=== PATIENT | male | born 1980 | race Caucasian/White ===

== ENCOUNTER 2019-04-25 10:15 | Day surgery (SDC) | payer BC ==
[~2019-04-25] VITALS: Ht 172.7 cm; Wt 85.7 kg
[2019-04-25 10:44] VITALS: BP 125/78; PULSE 63; TEMP 98
[2019-04-25 14:30] VITALS: BP 124/71; PULSE 68
[2019-04-25] MEDS ORDERED: MOTRIN 600600 MG/TAB PO (15:14)
[2019-04-25] MEDS ORDERED: NORCO 325 MG-51 TAB PO (15:15)
[2019-04-25] MEDS ORDERED: COLACE 100100 MG/CAP PO (15:15)
[2019-04-25] MEDS ORDERED: Work Release (15:27)
[2019-04-25 15:40] VITALS: BP 127/81; PULSE 89; TEMP 98.4
--- NOTE | 2019-04-25 15:40 | NUR ---
PATIENT TO BAY 2 PER CART ACCOMPANIED BY PAUC RN. PATIENT ON ROOM AIR. MONITORS APPLIED. VSS. PATIENT STATES HAS SOME DISCOMFORT AND DENIES NAUSEA. REPORT RECEIVED.
[2019-04-25 15:50] VITALS: BP 129/83; PULSE 79
--- NOTE | 2019-04-25 15:50 | NUR ---
VSS. AT BEDSIDE HELPING PATIENT. GIVEN ICE WATER TO DRINK. BROUGHT MUFFIN REQUESTED. REQUESTED SALTINE CRACKERS. SALTINE CRACKERS BROUGHT IN FOR PATIENT. PATIENT STATES HAS A CLOUDY FEELING IN HEAD. DENIES NAUSEA. STATES SURGICAL SITE IS FEELING WARM. SURGICAL SITE CHECK NO BLEEDING OR SWELLING NOTED.
[2019-04-25 16:00] VITALS: BP 131/79; PULSE 96
--- NOTE | 2019-04-25 16:00 | NUR ---
VSS. PATIENT EATING COOKIE AND DRINKING WATER. AT BEDISDE HEPING PATIENT. INCISION SITE C,D,&I. DENIES NAUSEA AND INCREASING DISCOMFORT.
--- NOTE | 2019-04-25 16:30 | NUR ---
VSS. IV SITE HEPLOCK. PATIENT SITS ON SIDE OF BED. DENIES LIGHTHEADED AND DIZZY. PATIENT AMBULATES TO BATHROOM WITH ASSIST OF 1. STAYS IN BATHROOM WITH PATIENT. DENIES INCREASING DISCOMFORT TO INCISION SITE.
[2019-04-25 16:55] VITALS: BP 140/91; PULSE 99
--- NOTE | 2019-04-25 17:00 | NUR ---
VSS. PATIENT STATES UNABLE TO VOID. AMBULATES BACK TO ROOM. PHONE CALL MADE TO DR BANERJEE REGARDING UNABLE TO VOID. PATIENT INFORMED IF UNABLE TO VOID IN 6 HOURS HE IS TO RETURN TO ER. IV SITE DC'D TIP INTACT. DISCHARGE INSTRUCTIONS GIVEN VERBAL AND WRITTEN INCLUDING INFORMATION REGARDING VOIDING. PATIENT VOICED UNDERSTANDING. RX AND WORK RELEASE INFORMATION IN FOLDER PACKET FOR PATIENT. VOICED UNDERSTANDING TOO. [facility]
== END 2019-04-25 17:09 | disposition home or self-care (01) ==
LOC: SDCO 10:15
DX: K40.90 Unilateral inguinal hernia, without obstruction or gangrene, not specified as recurrent (principal); D17.6 Benign lipomatous neoplasm of spermatic cord; D64.9 Anemia, unspecified; Z80.8 Family history of malignant neoplasm of other organs or systems; Z88.1 Allergy status to other antibiotic agents
CPT/HCPCS: C1781; J1100; J1885; J2405; J2704; J3010; J7120

== ENCOUNTER → 2019-05-13 | Outpatient (CLI) | payer BC ==
[~2019-05-13] MED LIST: COLACE 100100 MG/CAP PO; MOTRIN 600600 MG/TAB PO; NORCO 325 MG-51 TAB PO; Work Release
== END ==
LOC: COL.RAD 12:56
DX: I86.1 Scrotal varices (principal); N43.3 Hydrocele, unspecified; Z98.890 Other specified postprocedural states